=== PATIENT | female | born 1960 | race Caucasian/White ===

== ENCOUNTER → 2016-03-19 | Day surgery (SDC) | payer OTHER ==
[~2016-03-19] VITALS: Ht 160 cm; Wt 115.7 kg
[~2016-03-19] MED LIST: DICLOFENAC SODI75 M2 PO; DOK100 M2 PO; HYDROMORPHONE HC2 M1 PO; HYDROMORPHONE HC2 MG PO; KEFLEX 250MG C250 MG PO; MIRALAX17 GM PO; OPTIMUM VITAMIN1 TAB PO; SENOKOT NATURA8.6 MG PO; TYLENOL EXTRA500 M2 PO; ZOFRAN 4 MG TABL4 MG PO
--- NOTE | 2016-03-19 11:26 | NUCLEAR MEDICINE REPORT ---
EXAMINATION: LYMPHOSCINTIGRAPHY CLINICAL INFORMATION: Right breast cancer. COMPARISON: None. TECHNIQUE: A total of 0.98 mCi technetium 99m Lymphoseek was injected in divided doses around the right areola by Dr. Clark. Images of the right breast and axilla in the anterior, CHOI, and right lateral projections were obtained with simultaneous visualization of the body silhouette using a cobalt flood source, with the patient positioned between the flood source and the gamma camera. FINDINGS: A sentinal node is well visualized in the right axilla. A faint second echelon node is visualized in the right axilla. IMPRESSION: A sentinal node in the right axilla is well visualized.
--- NOTE | 2016-03-19 13:17 | Operative Report ---
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 Ancef 2 g was given and the right breast prepped and draped in sterile fashion using ChloraPrep. 3 mL of methylene blue diluted with 2 mL of saline was injected in the retroareolar fashion. Breast was approached and Marcaine was given. A radial incision was made in the upper outer quadrant. The wire was brought into the incision terms grasped using Allis clamp. A wide dissection was performed to encompass the area of the clip. Specimen was removed and marked for orientation using margin map. Clip was confirmed to be in the specimen by x-ray. Additional margins were taken in the medial, cranial, caudal, deep, and skin positions. Additional lateral tissue was not removed as the dissection began in the axilla. Hemostasis was adequate. The axilla was then approached. A hot, blue lymph node was identified and excised as sentinel lymph node 1. An additional hot lymph node was identified and marked as sentinel lymph node #2. Hemostasis was adequate in the axilla. A 2 x 3 BioSorb Marker was placed in the cavity and fastened to the surrounding tissue using interrupted Maxon sutures. Deep tissue was approximated using 2-0 Vicryl sutures. The skin was closed using a running Biosyn subcuticular stitch. Surgery sterile dressings were applied, and patient transferred to the recovery room in satisfactory condition having tolerated the procedure well.
--- NOTE | 2016-03-19 17:02 | MAMMOGRAPHY REPORT ---
EXAMINATION: MM NEEDLE LOCALIZATION SPECIMEN FROM THE BREAST, RIGHT CLINICAL INDICATION: Specimen radiograph of lumpectomy specimen, DCIS in upper outer quadrant of right breast. COMPARISON: Preoperative needle localization films. TECHNIQUE: Single specimen radiograph was obtained. FINDINGS: The radiograph of the excised surgical specimen shows that the hookwire is delivered intact and both marker clips and calcifications are identified in the specimen. IMPRESSION: Satisfactory excision of the targeted lesion. These findings were communicated to the surgeon in the OR at the time of specimen radiography (03/19/2016, 12:28 PM).
--- NOTE | 2016-03-22 09:51 | MAMMOGRAPHY REPORT ---
EXAMINATION: MM GUIDED NEEDLE LOCALIZATION BREAST, RIGHT CLINICAL INFORMATION: Preoperative localization of DCIS in the upper outer quadrant of the right breast. COMPARISON: Stereotactic biopsy and mammogram dated 01/21/2016. Mammogram dated 01/12/2016 and 01/05/2016. TECHNIQUE NEEDLE LOC: Proper informed consent is obtained from the patient after discussion of the procedure, potential risks and complications, and alternatives including declining the procedure today. Patient was given an opportunity for questions. The patient appeared to understand. The patient consented to the procedure and signed the consent form. GUIDANCE: Digital mammography. APPROACH: Lateral. TARGET: T-shaped stereotactic biopsy clip in the upper-outer quadrant of the right breast. ANESTHESIA: 10 mL Xylocaine 2%. LOCALIZATION MARKER: [employer] 5 cm needle localization wire. The skin was prepped and local anesthesia administered. The needle was positioned and position assessed with mammography. The wire was hooked into position. The patient tolerated the procedure well and had no immediate complication. Diagram was marked for the surgeon. The target is a T shaped biopsy clip with adjacent grouping of microcalcifications in the upper outer quadrant of the right breast, 8 cm deep to the skin with 9.5 cm of the wire remaining external to the skin. IMPRESSION: Status post right breast needle localization with wire hooked into position. The target is a T shaped biopsy clip with adjacent grouping of microcalcifications in the upper outer quadrant of the right breast, 8 cm deep to the skin with 9.5 cm of the wire remaining external to the skin.
== END ==
LOC: STS 04:13
DX: D05.11 Intraductal carcinoma in situ of right breast (principal); Z85.42 Personal history of malignant neoplasm of other parts of uterus; Z80.3 Family history of malignant neoplasm of breast; Z87.891 Personal history of nicotine dependence; E78.00 Pure hypercholesterolemia, unspecified; E66.9 Obesity, unspecified
CPT/HCPCS: 88305; 88307; A9520; C9728; J0131; J0690; J1885; J2001; J2250; J2405